=== PATIENT | male | born 1940 | race Caucasian/White ===

== ENCOUNTER 2020-10-09 15:40 | Emergency (ER) | payer MEDICARE, BC ==
[~2020-10-09] VITALS: Ht 175.3 cm; Wt 98.0 kg
--- NOTE | 2020-10-09 16:50 | RAD ---
CT head without contrast. Maxillofacial CT without contrast. CT cervical spine without contrast. CT c hest without contrast. PQRS statement: CT scans at this facility use dose reduction including either automated exposure cont rol, iterative reconstructions, and /or weight based radiation dosing via mA and kV modification when appropriate to reduce radiation dose to as low as reasonably achievable. HISTORY: Fall, hit head, trauma, anticoagulated, posterior chest and rib pain. CT head findings: No intracranial hemorrhage, mass, hydrocephalus, extra-axial fluid collections or i nfarction. Orbits, mastoids and bones are unremarkable. IMPRESSION: No acute intracranial CT abnormality. Maxillofacial CT findings: No facial bone fracture. Mandible intact. Maxilla intact. Bony orbits inta ct. Paranasal sinuses are well-aerated. No orbital edema or hematoma. There is mild left periorbital and facial soft tissue edema as well as 2 small foci of hematoma each measuring 1 cm overlying the le ft maxilla and left lateral periorbital soft tissues. IMPRESSION: Facial bones intact. Left periorbital and facial soft tissue edema likely contusion surro unding 2 small soft tissue hematomas each measuring 1 cm in size. Bony orbits are intact. CT cervical spine findings: Craniocervical junction intact. C1-C2 atlantodental arthrosis with joint capsule thickening calcification as well as bony spurring. The arthrosis could mildly narrow the spin al canal. Mild cervical scoliosis. Cervical vertebral body height and alignment intact. No fracture o f the cervical spine. Cervical disc height loss, bulky disc osteophytes and uncovertebral and facet s purring with multilevel spinal canal and neural foraminal stenoses throughout the cervical spine. Par aspinal tissues are unremarkable. Cervical carotid artery calcified plaque. IMPRESSION: No acute osseous injury of the cervical spine. Cervical disc disease. See above. CT chest findings: Absence of contrast limits assessment for vascular pathology. Thoracic scoliosis a nd bridging anterior thoracic disc osteophytes. Chronic left posterior eighth rib fracture sclerotic bony margins. Chronic healed left lateral rib fracture deformities. Tortuosity and calcified plaque t horacic aorta. Ascending aorta diameter 3.2 cm. Extensive coronary calcified plaque. No mediastinal h ematoma. No adenopathy in the chest. Heart size normal. Pulmonary vessels and esophagus are unremarka ble. 3 cm left renal upper pole exophytic cyst density of 6 units. Subcentimeter right renal hypodens ities too small to characterize. Small subcentimeter dependent left pleural effusion at the lower lob e. Trachea and bronchi are unremarkable. No pneumothorax. No pulmonary opacities or nodularity. IMPRESSION: 1. Small subcentimeter in thickness left pleural effusion at the lung base. 2. 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 Electronically signed by: Aaron Jackson MD (10/09/2020 4:48 PM) [facility]
--- NOTE | 2020-10-09 17:50 | PHYS DOC ---
Past History Past Surgical History: Other Additional Past Surgical Histo: knee (DEBBIE CHAVEZ APRN) Alcohol Use: None (DEBBIE CHAVEZ APRN) General Adult EDM: Chief Complaint: MECHANICAL FALL HPI: HPI: Patient is a 79-year-old male being seen after he tripped and fell from standing and hit his head. Patient denies loss of consciousness, he is on Coumadin. Patient is reporting pain to his left lower ribs. He has multiple skin tears and ecchymosis. Patient denies shortness of breath, cough, head or neck pain, lightheadedness, nausea or vomiting. (DEBBIE CHAVEZ APRN) Review of Systems: Review of Systems: 14 body systems of the review of systems have been reviewed. See HPI for pertinent positive and negative responses, otherwise all other systems are negative, nonpertinent or noncontributory (DEBBIE CHAVEZ APRN) Allergies: Allergies: Allergies Coded Allergies Type Severity Reaction Last Updated Verified Sulfa (Sulfonamide Antibiotics) Allergy Unknown 10/09/20 Yes lisinopril Allergy Unknown 10/09/20 Yes (DEBBIE CHAVEZ APRN) Physical Exam: PE: Constitutional: Well developed, well nourished, no acute distress, non-toxic appearance. [] HENT: Normocephalic, atraumatic, bilateral external ears normal, oropharynx moist, no oral exudates, nose normal. [] Eyes: PERRLA, EOMI, no discharge, ecchymosis noted surrounding left eye, 0.5 cm abrasion noted to left eyebrow, conjunctiva hemorrhage noted [] Neck: Normal range of motion, no bony spinal tenderness, supple, no stridor. [] Cardiovascular:Heart rate regular rhythm, no murmur, left anterior lower rib pain with palpation no crepitus, no flail chest [] Lungs & Thorax: Bilateral breath sounds clear to auscultation [] Abdomen: Bowel sounds normal, soft, no tenderness, no masses, no pulsatile masses. [] Skin: Warm, dry, no erythema, no rash, 4 cm x 2 cm skin tear to the left elbow, good range of motion of left elbow, left extremity neuro intact, 3 cm jagged skin tear to the right palmar aspect of hand on thumb, neuro intact, range of motion intact. [] Back: No bony spinal tenderness, normal range of motion Extremities: No tenderness, no cyanosis, no clubbing, ROM intact, no edema, bilateral knee abrasions, good range of motion of knees, neuro intact. [] Neurologic: Alert and oriented X 3, normal motor function, normal sensory function, no focal deficits noted. [] Psychologic: Affect normal, judgement normal, mood normal. [] (DEBBIE CHAVEZ APRN) Current Patient Data: Vital Signs: Vital Signs Date Time Temp Pulse Resp B/P (MAP) Pulse Ox O2 Delivery O2 Flow Rate FiO2 10/09/20 15:51 98.0 82 12 130/80 94 Room Air (DEBBIE CHAVEZ [employer]) EKG: EKG: [] (DEBBIE CHAVEZ APRN) Radiology/Procedures: Radiology/Procedures: PROCEDURE: CT HEAD AND MAXILLOFACIAL WO CT head without contrast. Maxillofacial CT without contrast. CT cervical spine without contrast. CT chest without contrast. PQRS statement: CT scans at this facility use dose reduction including either automated exposure control, iterative reconstructions, and /or weight based radiation dosing via mA and kV modification when appropriate to reduce radiation dose to as low as reasonably achievable. HISTORY: Fall, hit head, trauma, anticoagulated, posterior chest and rib pain. CT head findings: No intracranial hemorrhage, mass, hydrocephalus, extra-axial fluid collections or infarction. Orbits, mastoids and bones are unremarkable. IMPRESSION: No acute intracranial CT abnormality. Maxillofacial CT findings: No facial bone fracture. Mandible intact. Maxilla intact. Bony orbits intact. Paranasal sinuses are well-aerated. No orbital edema or hematoma. There is mild left periorbital and facial soft tissue edema as well as 2 small foci of hematoma each measuring 1 cm overlying the left maxilla and left lateral periorbital soft tissues. IMPRESSION: Facial bones intact. Left periorbital and facial soft tissue edema likely contusion surrounding 2 small soft tissue hematomas each measuring 1 cm i n size. Bony orbits are intact. CT cervical spine findings: Craniocervical junction intact. C1-C2 atlantodental arthrosis with joint capsule thickening calcification as well as bony spurring. The arthrosis could mildly narrow the spinal canal. Mild cervical scoliosis. Cervical vertebral body height and alignment intact. No fracture of the cervical spine. Cervical disc height loss, bulky disc osteophytes and uncovertebral and facet spurring with multilevel spinal canal and neural foraminal stenoses throug hout the cervical spine. Paraspinal tissues are unremarkable. Cervical carotid artery calcified plaque. IMPRESSION: No acute osseous injury of the cervical spine. Cervical disc disease. See above. CT chest findings: Absence of contrast limits assessment for vascular pathology. Thoracic scoliosis and bridging anterior thoracic disc osteophytes. Chronic left posterior eighth rib fracture sclerotic bony margins. Chronic healed left lateral rib fracture deformities. Tortuosity and calcified plaque thoracic aorta. Ascending aorta diameter 3.2 cm. Extensive coronary calcified plaque. No mediastinal hematoma. No adenopathy in the chest. Heart size normal. Pulmonary vessels and esophagus are unremarkable. 3 cm left renal upper pole exophytic cyst density of 6 units. Subcentimeter right renal hypodensities too small to characterize. Small subcentimeter dependent left pleural effusion at the lower lobe. Trachea and bronchi are unremarkable. No pneumothorax. No pulmonary opacities or nodularity. IMPRESSION: 1. Small subcentimeter in thickness left pleural effusion at the lung base. 2. 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 Electronically signed by: Jourdan Jackson MD (10/09/2020 4:48 PM) [facility] [place] DICTATED AND SIGNED BY: JOURDAN JACKSON MD DATE: 10/09/20 1627 CC: PEBBLES JAMES MD; EMERGENCY,DEPARTMENT; PCP,NO ~MTH0 0 (DEBBIE CHAVEZ APRN) Heart Score: C/O Chest Pain: No Risk Factors: Risk Factors: DM, Current or recent (<one month) smoker, HTN, HLP, family history of CAD, obesity. Risk Scores: Score 0 - 3: 2.5% MACE over next 6 weeks - Discharge Home Score 4 - 6: 20.3% MACE over next 6 weeks - Admit for Clinical Observation Score 7 - 10: 72.7% MACE over next 6 weeks - Early Invasive Strategies (DEBBIE CHAVEZ APRN) Course & Med Decision Making: Course & Med Decision Making Pertinent Labs and Imaging studies reviewed. (See chart for details) Patient is a 79-year-old male being seen following a fall. CT scan of his head and neck were negative for any acute findings, CT scan of chest was negative for any acute findings but did show chronic rib fracture on the right side. Wounds cleansed in the ER. Superficial lacerations glued with skin glue and dressings placed. I discussed with patient all findings and diagnostic testing as well as the need to follow-up with PCP for further evaluation and treatment or return to the ER if any new or worsening symptoms. Strict return precautions were also discussed at length. Patient voiced understanding and agreement with the plan. Patient is hemodynamically stable at the time of disposition. (DEBBIE CHAVEZ APRN) Dragon Disclaimer: Dragon Disclaimer: This electronic medical record was generated, in whole or in part, using a voice recognition dictation system. (DEBBIE CHAVEZ APRN) Attending Co-Sign The patient was seen and interviewed as well as examined at the bedside. The chart was reviewed. The case was discussed. Agree with the plan of care. (VENTURA SHETH DO) Departure Departure: Impression: Primary Impression: Head injury Qualified Codes: S09.90XA - Unspecified injury of head, initial encounter Disposition: HOME / SELF CARE / HOMELESS Condition: GOOD Referrals: PCP,NO (PCP) Patient Instructions: Head Injury, Adult Additional Instructions: You were seen in the ER following a fall. CT scans of your head, neck, face, ribs for unremarkable. You have several skin tears and abrasions. You can apply Polysporin/bacitracin to these wounds and keep them covered with a nonadherent dressing. The skin tear on your right thumb was glued with skin glue. Please do not submerge your hand in any water for 48 hours. The skin glue should fall off on its own, please do not pick at it. Please monitor for signs of infection such as redness, warmth, drainage, swelling. If you notice any of the signs of infection, follow-up with your primary care provider or return to the ER. You can take Tylenol/ibuprofen for pain at home and apply ice. If you develop decreased mentation, nausea, vomiting, headache, lightheadedness, vision changes, decreased mobility of your extremities or increased pain please return to the ER immediately. EMERGENCY DEPARTMENT GENERAL DISCHARGE INSTRUCTIONS Thank you for coming to [facility] (ED) today and trusting us with you care. We trust that you had a positivie experience in our Emergency Department. If you wish to speak to the department management, you may call the director at [phone]. YOUR FOLLOW UP INSTRUCTIONS ARE FOLLOWS: 1. Do you have a private Doctor? If you do not have a private doctor, please ask for a resource list of physicians or clinics that may be able to assist you with follow up care. 2. The Emergency Physician has interpreted your x-rays. The X-Ray specialist will also review them. If there is a change in the findings, you will be notified in 48 hours when at all possible. 3. A lab test or culture has been done, your results will be reviewed and you will be notified if you need a change in treatment. ADDITIONAL INSTRUCTIONS AND INFORMATION: 1. Your care today has been supervised by a physician who is specially trained in emergency care. Many problems require more than one evaluation for a complete diagnosis and treatment. We recommend that you schedule your follow up appointment as recommended to ensure complete treatment of you illness or injury. If you are unable to obtain follow up care and continue to have a problem, or if your condition worsens, we recommend that you return to the ED. 2. We are not able to safely determine your condition over the phone nor are we able to give sound medical advice over the phone. For these safety reasons, if you call for medical advice we will ask you to come to the ED for further evaluation. 3. If you have any questions regarding these discharge instructions please call the ED at [phone]. SAFETY INFORMATION: In the interest of safety, wellness, and injury prevention; we encourage you to wear your sealbelt, if you smoke; quite smoking, and we encourage family to use a protective helmet for bicycling and other sporting events that present an increased risk for head injury. IF YOUR SYMPTOMS WORSEN OR NEW SYMPTOMS DEVELOP, OR YOU HAVE CONCERNS ABOUT YOUR CONDITION; OR IF YOUR CONDITION WORSENS WHILE YOU ARE WAITING FOR YOUR FOLLOW UP APPOINTMENT; EITHER CONTACT YOUR PRIMARY CARE DOCTOR, THE PHYSICIAN WHOSE NAME AND NUMBER YOU WERE GIVEN, OR RETURN TO THE ED IMMEDIATELY. DEBBIE CHAVEZ APRN Oct 09, 2020 17:50 VENTURA SHETH DO Oct 10, 2020 06:04
[2020-10-09] MEDS ORDERED: DIPH,PERTUSS(ACELL),TET VAC/PF 0.5 ML SYRINGE. VAX IM ONE (18:00)
[2020-10-09 18:40] VITALS: BP 100/57
== END 2020-10-09 18:40 | disposition home or self-care (01) ==
LOC: ER 15:40
DX: S51.012A Laceration without foreign body of left elbow, initial encounter (principal); S61.411A Laceration without foreign body of right hand, initial encounter; S00.12XA Contusion of left eyelid and periocular area, initial encounter; S80.212A Abrasion, left knee, initial encounter; S80.211A Abrasion, right knee, initial encounter; H11.32 Conjunctival hemorrhage, left eye; Z79.01 Long term (current) use of anticoagulants; Z88.2 Allergy status to sulfonamides; Z88.8 Allergy status to other drugs, medicaments and biological substances; W01.0XXA Fall on same level from slipping, tripping and stumbling without subsequent striking against object, initial encounter; Y93.89 Activity, other specified; Y92.89 Other specified places as the place of occurrence of the external cause; Y99.8 Other external cause status
CPT/HCPCS: 12002; 70450; 70486; 71250; 72125; 90471; 90715; 99285